=== PATIENT | male | born 1975 | race Caucasian/White ===

== ENCOUNTER 2019-02-19 10:34 | Emergency (ER) | payer OTHER ==
[~2019-02-19 10:34] MED LIST: DIPH50 PO; HYDCOR1TC TOP; IBUP800 PO; PRED10 PO; TRAM50 PO
== END 2019-02-19 12:06 | disposition left against medical advice (07) ==
LOC: ER 10:34
DX: Z53.21 Procedure and treatment not carried out due to patient leaving prior to being seen by health care provider (principal)